=== PATIENT | female | born 1965 | race Caucasian/White ===

== ENCOUNTER 2023-05-19 13:03 | Emergency (ER) | payer OTHER, SELFPAY ==
[2023-05-19 13:04] VITALS: BP 157/95; PULSE 74; RESP 20; TEMP 36; O2SAT 98; BMI 24.0
--- NOTE | 2023-05-19 13:39 | CT_ITS ---
EXAM: CT HEAD WITHOUT INTRAVENOUS CONTRAST CLINICAL INDICATION: headache TECHNIQUE: Multiple axial images were obtained of the head without intravenous contrast. This CT exam was performed using one or more of the following dose reduction techniques: automated exposure control, adjustment of the mA and/or kV according to patient size, and/or use of iterative reconstruction technique. RADIATION DOSE: CTDIvol = 44.99 mGy, DLP = 796.11 mGy-cm COMPARISON: No relevant prior studies available. FINDINGS: BRAIN AND EXTRA-AXIAL SPACES: Unremarkable. No intra- or extra-axial hemorrhage. No evidence of acute infarct. No intracranial mass or mass effect. There is preservation of the shaffer/white matter interface. Posterior fossa structures are unremarkable. Ventricles are appropriate for age. No hydrocephalus. Basal cisterns are patent. BONES/JOINTS: Unremarkable. No discrete lytic or blastic abnormalities. SINUSES: Unremarkable as visualized. Clear. MASTOID AIR CELLS: Unremarkable. Clear. ORBITS: Visualized globes, extraocular muscles, optic nerves and retrobulbar fat appear unremarkable. CT/Brain/Head without Contrast IMPRESSION: Negative head/brain CT without intravenous contrast. Electronically Signed: Isaac Barajas MD at 14:15 EST ,
[2023-05-19] MEDS: 0.9% Normal Saline (1000mL) 1,000 ML 1000 ML IV (13:45)
[2023-05-19] MEDS: Metoclopramide 10 MG/2 ML Vial 5 MG IV (13:45)
--- NOTE | 2023-05-19 13:45 | EX.ED.VIS.HA ---
HPI History of Present Illness Chief Complaint: Headache Informant: patient Narrative Narrative: Patient is a 57-year-old female presenting from home for worsening headache and vomiting. Patient states he had a mild headache throughout the week but did not think too much of it. She has just been ignoring it. She notes that she does have a history of migraines her last one was 4 to 5 years ago. She attributed it to being on control at that time. She also the past 2 weeks she has had some mild nasal congestion, sinus pressure and a cough for the past few days. This morning she did wake up early to take her to the airport in [place] and then come back to [place] to watch her grandchildren. She took about an hour nap when she woke up she noted her headache was pretty severe. She states that in her forehead region. Denies associated photophobia, phonophobia or neck pain. Denies any fevers. While driving here she had multiple episodes of vomiting. She tried to take 2 Motrin for her headache and route but threw up. Denies any abdominal pain, bowel symptoms or urinary symptoms. Denies associated nausea or vomiting. No other complaints at this time. Denies any head trauma. Is not on any blood thinners. PFSH PFSH Home Medications ondansetron 4 mg disintegrating tablet 4 mg PO Q8H PRN PRN Nausea #10 tabs 05/19/23 [Rx Last Taken Unknown] Allergy/AdvReac Type Severity Reaction Status Date / Time No Known Allergies Allergy Verified 05/19/23 13:05 Social History Smoking Status: Never smoker ROS ROS ED Constitutional Constitutional ED: Denies chills or fever(s) Eyes Eyes: Denies change in vision ENT ENT ED: Denies rhinorrhea or sore throat Cardiovascular Cardiovascular: Denies chest pain Respiratory/Chest Respiratory/Chest: Denies cough Gastrointestinal Gastrointestinal: Reports nausea and vomiting Genitourinary Genitourinary ED: Denies dysuria Musculoskeletal Musculoskeletal: Denies arthralgias, myalgias or neck pain Integumentary Denies rash Neurologic Neurologic: Reports headache(s); Denies paresthesias or weakness Psychiatric Psychiatric: Denies anxiety Hematologic/Lymphatic Hematologic/Lymphatic: Denies easy bleeding or easy bruising EXAM Physical Exam Const Vital Signs: 05/19/23 13:04 Temperature 96.8 F L Temperature Source Temporal Pulse Rate 74 Respiratory Rate 20 H Blood Pressure 157/95 H Blood Pressure Mean 115 Pulse Ox 98 Oxygen Delivery Method Room Air Positive well nourished and well developed General Appearance ED: well developed and NAD HEENT Reports normocephalic, TM's clear and moist mucous membranes Face and Sinus: Negative for sinus tenderness Tympanic Membrane ED: Yes TM's clear Eyes PERRL and EOMs intact bilaterally Neck supple, no meningeal signs and no JVD Resp normal respiratory effort and clear to auscultation bilaterally Cardio regular rate, regular rhythm and no murmurs GI non-tender and non-distended Palpation: soft; Negative for tender or guarding Extremity normal to inspection and full ROM Neuro oriented x3, CN's II-XII intact bilaterally and no sensory deficits noted Motor Exam: strength 5/5 throughout; Negative for general weakness Psych mental status grossly normal Skin Lesions: no lesions Rashes: no rashes MDM MDM MDM Narrative Medical decision making narrative: Patient is evaluated for worsening headache. She is normal neurologic exam. Vital signs significant for mildly elevated blood pressure 157/95. Will obtain a CT of the brain, basic labs as well as COVID, flu and RSV swab. Will also give IV fluids and Reglan for symptom control and reevaluate. CT of the brain does not show any acute process. Patient is given IV Toradol. Lab work largely unremarkable including CBC, CMP and urinalysis. Patient does not have any meningeal signs this does not sound like a subarachnoid hemorrhage. And that she requires CT a or lumbar puncture. On repeat evaluation patient is feeling much better and will be discharged home. COVID, flu and RSV are negative. Patient discharged home with a prescription for Zofran and will alternate ibuprofen and Tylenol as needed for headache. She verbalized agreement understand this plan. Will follow-up with her primary care doctor. Counseled on getting plenty of rest and drinking fluids. Lab Data Labs: Laboratory Results - last 24 hr 05/19/23 05/19/23 13:09 13:23 WBC 9.5 RBC 4.72 Hgb 13.0 Hct 41.1 MCV 87.1 MCH 27.5 MCHC 31.6 L RDW Std Deviation 41.9 RDW Coeff of Nicho 13.2 Plt Count 357 MPV 9.2 Immature Gran % (Auto) 0.400 Neut % (Auto) 83.8 H Lymph % (Auto) 12.7 L Eddy % (Auto) 2.3 Eos % (Auto) 0.4 Baso % (Auto) 0.4 Absolute Neuts (auto) 7.9 H Absolute Lymphs (auto) 1.20 Nucleated RBC % 0 Sodium 140 Potassium 4.0 Chloride 105 Carbon Dioxide 27.0 Anion Gap 8 BUN 15 Creatinine 0.64 Estim Creat Clear Calc 85.77 Est GFR (MDRD) Af Amer 123 Est GFR (MDRD) Non-Af 102 BUN/Creatinine Ratio 23.3 H Glucose 105 Calcium 9.4 Total Bilirubin 0.30 AST 20 ALT 19 Alkaline Phosphatase 112 Total Protein 8.1 Albumin 3.4 Globulin 4.7 H Albumin/Globulin Ratio 0.7 L Lipase 53 Urine Color Yellow Urine Clarity Clear Urine pH 7.0 Ur Specific [place] 1.010 Urine Protein 15 H Urine Glucose (UA) Normal Urine Ketones Negative Urine Occult Blood Negative Urine Nitrite Negative Urine Bilirubin Negative Urine Urobilinogen Normal Ur Leukocyte Esterase Negative Urine RBC 0 SEEN Urine WBC 0 SEEN Ur Squamous Epith Cells 0-5 SEEN Amorphous Sediment 1+ Urine Bacteria 0 SEEN Urine Mucus 0 SEEN Radiography Diagnostic Testing: Clinical Impression(s) from Imaging Studies Brain CT 05/19/23 13:39 IMPRESSION: Negative head/brain CT without intravenous contrast. Electronically Signed: Isaac Barajas MD at 14:15 EST Reading Location ID and State: [facility]– [place] / [place] , Service support , Discharge Plan Triage Chief Complaint: Headache ED Provider: Danika Kelsey Dx/Rx/DC Orders Clinical Impression: Headache, Nausea & vomiting Instructions: ED Headache Unspecified Prescriptions: New ondansetron 4 mg tablet,disintegrating 4 mg PO Q8H PRN PRN (Reason: Nausea) Qty: 10 0RF [facility] [Primary Care Provider] - Activity Restrictions/Additional Instructions: Your workup largely is normal today. Drink plenty of fluids. May alternate ibuprofen and Tylenol at home. Do not take any ibuprofen for the next 6 hours however because you did receive IV Toradol which is a type anti-inflammatory similar to ibuprofen in the hospital. Return to the ER if you have a progression or worsening of your symptoms or further concerns. Disposition Disposition: Home, Self Care Discharge Date/Time: 05/19/23 15:33
[2023-05-19 13:53] LABS: Bacteria 0 SEEN /hpf (None Seen); Mucous, Urine 0 SEEN /hpf (<or=2+); Red Blood Cells-Urine 0 SEEN /hpf (0-5); White Blood Cells 0 SEEN /hpf (0-5)
[2023-05-19 14:09] LABS: Color, Urine Yellow (Yellow); Glucose, Dipstick Normal (Normal); Ketone-Dipstick Negative (Negative); Leukocyte Esterase-Dipstick Negative /ul (Negative); Nitrite-Dipstick Negative (Negative); Occult Blood-Urine Negative /ul (Negative); Protein-Dipstick 15 mg/dl (Negative); Urine Bilirubin Dipstick Negative (Negative); Urine Clarity Clear (Clear); Urine Urobilinogen Normal (Normal)
[2023-05-19 14:10] LABS: Absolute Neutrophil Count 7.9 X10^3/uL (2.0-7.7); Basophil# 0.04 X10^3/uL; Basophil% 0.4 % (0-1); Eosinophil# 0.04 X10^3/uL; Eosinophils% 0.4 % (0-5); Hematocrit 41.1 % (37-47); Lymphocyte % 12.7 % (19-41); Mean Corp Hgb Conc 31.6 g/dL (32-36); Mean Corpuscular Hgb 27.5 pg (27.0-32.0); Mean Corpuscular Volume 87.1 fL (81-99); Mean Platelet Vol. 9.2 fl (6.2-12.0); Monocyte# 0.22 X10^3/uL; Monocyte% 2.3 % (0-10); NRBC Flagged by Analyzer 0 % (0-5); Neutrophil # 7.91 X10^3/uL (2.7-7.7); Neutrophil % 83.8 % (47-70); Platelet Count 357 K/mm3 (150-450); RBC Distribution Width CV 13.2 % (11.6-14.6); RBC Distribution Width SD 41.9 fl (35.1-43.9); Red Blood Count 4.72 M/mm3 (4.2-5.4); White Blood Count 9.5 K/mm3 (4.4-11.0)
[2023-05-19 14:12] LABS: ALB/GLOB Ratio 0.7 RATIO (0.9-2.4); AST(SGOT) 20 U/L (15-37); Alanine Aminotransfer ALT/SGPT 19 U/L (13-56); Albumin, Serum 3.4 g/dL (3.2-5.0); Alkaline Phosphatase 112 U/L (45-117); Anion Gap 8 (5-15); BUN 15 mg/dL (7-18); BUN/Creat Ratio 23.3 RATIO (10-20); Calcium,Total 9.4 mg/dL (8.5-10.1); Chloride 105 mmol/L (98-107); Creatinine, Serum 0.64 mg/dL (0.55-1.02); EST Glomerular Filtration Rate 102 mL/min (>60); Est Glom Filt Rate - Afr Amer 123 mL/min (>60); Estimated Creatinine Clearance 85.77 ml/min; Globulin 4.7 g/dL (2.2-4.2); Glucose 105 mg/dL (74-106); Lipase 53 U/L (13-75); Protein, Total 8.1 g/dL (6.4-8.2); Sodium Level 140 mmol/L (136-145)
[2023-05-19 14:45] LABS: Amorphous Sediment 1+; Squamous Epithelial Cells - UA 0-5 SEEN /hpf (5-10)
[2023-05-19] MEDS: Ketorolac 15 MG/ML Vial IV (15:04)
== END 2023-05-19 15:33 | disposition home or self-care (01) ==
PROVIDERS: Emergency Provider Emergency Medicine; Visit Provider Emergency Medicine
DX: R51.9 Headache, unspecified (principal); R11.2 Nausea with vomiting, unspecified
CPT/HCPCS: 70450; 80053; 81001; 83690; 85025; 87631; 96361; 96374; 96375; 99283; J7030; A4216